=== PATIENT | male | born 1990 | race Caucasian/White ===

== ENCOUNTER 2021-04-29 11:06 | Emergency (ER) | payer OTHER | END 2021-04-29 13:18 | disposition home or self-care (01) | LOC: ER1 11:06 | DX: S06.9X9A Unspecified intracranial injury with loss of consciousness of unspecified duration, initial encounter (principal); S00.83XA Contusion of other part of head, initial encounter; I10 Essential (primary) hypertension; F17.290 Nicotine dependence, other tobacco product, uncomplicated; Z86.16 Personal history of COVID-19; Z23 Encounter for immunization; W17.89XA Other fall from one level to another, initial encounter; Y92.830 Public park as the place of occurrence of the external cause | CPT/HCPCS: 70450; 70486; 72125; 90471; 90714; 99284 ==